=== PATIENT | female | born 1980 | race Caucasian/White ===

== ENCOUNTER → 2020-08-24 | Day surgery (SDC) | payer OTHER ==
[~2020-08-24] MED LIST: ATIVAN0.5 MG PO; COLACE 100MG C100 MG PO
[2020-08-25 16:15] LABS: ENDOMYSIAL ANTIBODY IGA Negative (Negative); IMMUNOGLOBULIN A, QN, SERUM 205 mg/dL (87-352); T-TRANSGLUTAMINASE (TTG) IGA <2 U/mL (0-3); T-TRANSGLUTAMINASE (TTG) IGG <2 U/mL (0-5)
== END | disposition home or self-care (01) ==
LOC: OR 08:08
PROVIDERS: Internal Medicine Gastroenterology
DX: K29.50 Unspecified chronic gastritis without bleeding (principal); B96.81 Helicobacter pylori [H. pylori] as the cause of diseases classified elsewhere; K64.4 Residual hemorrhoidal skin tags; K64.0 First degree hemorrhoids; J45.909 Unspecified asthma, uncomplicated; K21.9 Gastro-esophageal reflux disease without esophagitis; Z86.010 Personal history of colon polyps; Z87.891 Personal history of nicotine dependence; Z88.0 Allergy status to penicillin; Z88.8 Allergy status to other drugs, medicaments and biological substances; Z79.899 Other long term (current) drug therapy
CPT/HCPCS: 36415; 82784; 84703; J1100; J2250; J2405; J2704; J7040